=== PATIENT | male | born 1960 | race Caucasian/White ===

== ENCOUNTER 2023-02-06 10:48 | Emergency (ER) | payer BC, SELFPAY ==
[2023-02-06 10:55] VITALS: BP 166/101; PULSE 77; RESP 18; TEMP 36.7; O2SAT 96; BMI 33.7
--- NOTE | 2023-02-06 11:32 | ED_ITS ---
HPI - General Adult General Chief complaint: Unspecified Complaint, Adult Stated complaint: needs stitches removed Time Seen by Provider: 02/06/23 11:13 Source: patient Mode of arrival: ambulatory Limitations: no limitations History of Present Illness HPI narrative: 62-year-old male coming in today requesting suture removal. He smashed his right pinky finger 9 days ago and has sutures placed. No other concerns. Related Data Home Medications Medication Instructions Recorded Confirmed cetirizine 10 mg tablet 10 mg PO DAILY 02/06/23 02/06/23 citalopram 40 mg tablet 40 mg PO DAILY 02/06/23 02/06/23 lisinopril 20 mg tablet 20 mg PO DAILY 02/06/23 02/06/23 pantoprazole 40 mg tablet,delayed 40 mg PO DAILY 02/06/23 02/06/23 release tolterodine 4 mg capsule,extended 4 mg PO DAILY 02/06/23 02/06/23 release 24 hr Allergies Allergy/AdvReac Type Severity Reaction Status Date / Time No Known Drug Allergies Allergy Verified 02/06/23 10:58 Review of Systems Status of ROS: Reports: 6 or more systems reviewed and unremarkable except as noted in History and below Exam Narrative: Exam Narrative: Tip of the right pinky has 4 sutures and 2 sutures along the lateral edges of the nail. Finger laceration is not quite healed yet. Const: Vital Signs, click to edit/add: Vital Signs - 24 hr 02/06/23 10:55 Temperature 98.1 F Pulse Rate [Right Pulse Oximeter] 77 Respiratory Rate 18 Blood Pressure [Ri ght Upper Arm] 166/101 H Pulse Oximetry 96 Oxygen Delivery Me thod Room Air Course Course ED Course: Two sutures along the lateral edges of the nail removed without incident. One suture at the healed edge of the laceration was also removed. Three sutures were left in place. Vital Signs Vital signs: Initial Vital Signs Temperature 98.1 F 02/06/23 10:55 Temperature Source Temporal Artery Scan 02/06/23 10:55 Pulse Rate 77 02/06/23 10:55 Respiratory Rate 18 02/06/23 10:55 Blood Pressure 166/101 H 02/06/23 10:55 Blood Pressure Mean 122 H 02/06/23 10:55 Blood Pressure Position Sitting 02/06/23 10:55 Pulse Oximetry 96 02/06/23 10:55 Oxygen Delivery Method Room Air 02/06/23 10:55 Vital Signs Temperature 98.1 F 02/06/23 10:55 Pulse Rate 77 02/06/23 10:55 Respiratory Rate 18 02/06/23 10:55 Blood Pressure 166/101 H 02/06/23 10:55 Pulse Oximetry 96 02/06/23 10:55 Oxygen Delivery Method Room Air 02/06/23 10:55 Temperature 98.1 F 02/06/23 10:55 Pulse Rate 77 02/06/23 10:55 Respiratory Rate 18 02/06/23 10:55 Blood Pressure 166/101 H 02/06/23 10:55 Pulse Oximetry 96 02/06/23 10:55 Oxygen Delivery Method Room Air 02/06/23 10:55 Medical Decision Making MDM Narrative Medical decision making narrative: 62-year-old male presenting for suture removal. Three out of the 6 sutures were removed free we discussed wound hygiene, signs symptoms of infection and subsequent suture removal in 4-5 days with his primary care provider. Discharge Plan Discharge Clinical Impression: Visit for suture removal Patient Disposition: Home, Self-Care Condition: Stable Additional Instructions: 3 sutures were still left in place. Please have these removed with your primary care provider or Monday of this week. In the meantime, do not soak the finger for prolonged periods of time. Do not apply daily Vaseline to it. Watch for signs of infection which include drainage of pus from the tip of the finger or the tip of the finger turns red and hot. If this occurs follow-up with your doctor right away or return to the ER. Prescriptions: No Action citalopram 40 mg tablet 40 mg PO DAILY cetirizine 10 mg tablet 10 mg PO DAILY tolterodine 4 mg capsule,extended release 24hr 4 mg PO DAILY lisinopril 20 mg tablet 20 mg PO DAILY pantoprazole 40 mg tablet,delayed release (DR/EC) 40 mg PO DAILY Stand Alone Forms: [employer] Info Instructions
[2023-02-06 11:44] VITALS: PULSE 75; RESP 20; O2SAT 96
--- OUTSIDE RECORDS SUMMARY | 2023-02-06 11:46 | XMS_ITS | Patient Health Record ---
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 Name Role Phone No Primary, Care Primary Care Provider Unavailab Alex Chris Unavailable [phone] Amna Lozano Unavailable Unavailable ALLERGIES Allergen (clinical drug ingredient) Drug/Non Drug Allergy documented on EMR Reaction Allergy Type Onset Date Status BEE VENOM (uncoded) Hives Allergy 12/15/2014 Active cat dander allergenic extract / cat skin extract CAT HAIR EXTRACT Throat Irritation Drug Allergy 05/12/2015 Active atorvastatin ATORVASTATIN Myalgias Drug Allergy 12/15/2014 Active Shellfish (FN) SHELLFISH-DERIVED PRODUCTS Other, see comments Drug Allergy 05/12/2015 Active REASON FOR REFERRAL No Information MEDICATIONS Medication SIG (Take, Route, Frequency, Duration) Notes Start Date End Date Status Tolterodine Tartrate ER 4 MG Take 4 mg by mouth daily (every 24 hours). Oral Imported from [employer]: Element ID (19-Jun-2020 at 02:55:06 PM) 12/15/2014 Active Pantoprazole Sodium 40 MG Take 40 mg by mouth daily (every 24 hours). Oral Imported from [employer]: Element ID (19-Jun-2020 at 02:55:06 PM) 12/15/2014 Active Fish Oil 1000 MG Take 1 capsule by mouth daily (every 24 hours). Oral Imported from [employer]: Element ID (19-Jun-2020 at 02:55:06 PM) 12/15/2014 Active Senna 8.6 MG Take 1 tablet by mouth daily (every 24 hours). Take while on narcotics. Hold for loose stools. Indications: CONSTIPATION Oral Imported from [employer]: Element ID (19-Jun-2020 at 02:55:06 PM) 05/12/2015 Active Coenzyme Q10 (COQ-10 OR) Take by mouth. *please review for potential _update for e-prescription and drug interaction check* Imported from [employer]: Element ID (19-Jun-2020 at 02:55:06 PM) 05/12/2015 Active Citalopram Hydrobromide 10 MG Take 40 mg by mouth daily (every 24 hours). Oral Imported from [employer]: Element ID (19-Jun-2020 at 02:55:06 PM) 08/13/2014 Active Aspirin 81 MG Take 2 tablets by mouth daily (every 24 hours) for 42 days. Over the counter medication. Indications: Thrombosis prevention following orthopedic surgery. Oral Imported from [employer]: Element ID (19-Jun-2020 at 02:55:06 PM) 05/12/2015 Active SOCIAL HISTORY Tobacco Use: Social History Observation Description Date Details (start date - stop date) Never Smoker NA - NA Sex Assigned At : Social History Observation Description Sex Assigned At Unknown Tobacco Use/Smoking: Question Answer Notes Are you a nonsmoker Alcohol Screen Question Answer Notes Did you have a drink contain ing alcohol in the past year? Yes How often did you have a dri nk containing alcohol in the past year? Monthly or less (1 point) Points 1 Interpretation Negative PROBLEMS Problem Type ICD Code Onset Dates Problem Status W/U Status Risk SNOMED Code Notes Problem Unspecified rotator cuff tear or rupture of unspecified shoulder, not specified as traumatic (M75.100) Active confirmed Rupture of rotator cuff of shoulder (disorder) (931861152) Problem Impingement syndrome of right shoulder (M75.41) Active confirmed Impingement syndrome of shoulder region (495635609) Problem Spondylosis without myelopathy or radiculopathy, lumbar region (M47.816) 1 Active confirmed Lumbosacral spondylosis without myelopathy (44179427) Problem Spondylosis without myelopathy or radiculopathy, lumbosacral region (M47.817) 1 Active confirmed Lumbosacral spondylosis without myelopathy (74565383) Problem Other bursal cyst, other site (M71.38) 1 Active confirmed Bursal cyst (9899417) Problem Low back pain (M54.5) 1 Active confirmed Low back pain (625784490) PLAN OF TREATMENT No Information Insurance Providers Payer Name Payer Address Payer Phone Subscriber Number Group Number Insured Name Patient Relationship to Insured Coverage Start Date Coverage End Date Andry Gomes [facility] [address] [place] [address] [id number] [facility], Employee MEDICAL (GENERAL) HISTORY Medical History History ICD Code hypertension, heartburn, high cholestero l, anxiety Sleep apnea
== END 2023-02-06 11:42 | disposition home or self-care (01) ==
LOC: ED 11:43
PROVIDERS: Emergency Provider Family Medicine
DX: Z48.02 Encounter for removal of sutures (principal)
CPT/HCPCS: 99282; 99283